=== PATIENT | female | born 1970 | race Caucasian/White ===

== ENCOUNTER → 2017-09-09 | Outpatient (CLI) | payer OTHER ==
--- NOTE | 2017-09-09 22:18 | MR ---
EXAMINATION TYPE: MR knee LT wo con DATE OF EXAM: 09/09/2017 COMPARISON: NONE HISTORY: Lt knee pain x 2 days, no trauma TECHNIQUE: Multiplanar, multisequence imaging of the left knee is performed without IV contrast. FINDINGS: MEDIAL MENISCUS: Some increased signal in the body the medial meniscus may be due to 2 degenerative s ignal, the attachment at the root of the posterior horn of the meniscus is not well defined although a tear is not identified with certainty. LATERAL MENISCUS: Anterior and posterior horns are intact without tear. CRUCIATE LIGAMENTS: The anterior and posterior cruciate ligaments are intact and unremarkable. COLLATERAL LIGAMENTS: The medial collateral ligament and lateral collateral ligament complex are inta ct and unremarkable. EXTENSOR MECHANISM: Visualized quadriceps and patellar tendons are intact. EFFUSION: Suprapatellar joint effusion is present. POPLITEAL CYST: No popliteal/chirinos cyst. TRICOMPARTMENT SPACES: Maintained CARTILAGE: Grade 3 to grade IV chondromalacia changes are present at the posterior patella and some g rade 2 to grade 3 chondral malacia suspected medial compartment BONE MARROW SIGNAL: Some marginal spurring is present in the medial compartment, patellofemoral joint OTHER: Subcutaneous edema is present especially along the level of the prepatellar and patellar tend ons IMPRESSION: Osteoarthritis. Chondromalacia patella and subcutaneous edema, joint effusion. No evident meniscal te ar with additional findings as described.
== END | disposition home or self-care (01) ==
LOC: RADMRIMAIN 20:31
PROVIDERS: ATTEND Family Medicine
DX: M17.12 Unilateral primary osteoarthritis, left knee (principal); M22.42 Chondromalacia patellae, left knee

== ENCOUNTER → 2020-09-30 | Outpatient (CLI) | payer OTHER ==
--- NOTE | 2020-09-30 15:31 | US ---
EXAMINATION TYPE: US st tissue neck DATE OF EXAM: 09/30/2020 COMPARISON: NONE CLINICAL HISTORY: 50-year-old female R22.1 Neck Mass. Patient feels lump behind left earlobe since 2 months ago. Technique: Targeted ultrasound examination behind the left ear/lateral upper left neck at the patient 's palpable site. FINDINGS: [employer] notes: Hypoechoic, mostly solid nodule seen at area of palpable lump = 1.3 x 0.9 x 0.8 cm . IMPRESSION: Hypoechoic nodule at the patient's palpable site, left upper neck, possibly abnormally thickened lymp h node. This could be reactive or postinflammatory. If the finding persists or enlarges despite conse rvative management, consider tissue sampling.
== END | disposition home or self-care (01) ==
LOC: RADUSWWP 12:51
PROVIDERS: ATTEND Family Medicine
DX: R22.1 Localized swelling, mass and lump, neck (principal)
CPT/HCPCS: 76536